=== PATIENT | male | born 1965 | race Caucasian/White ===

== ENCOUNTER → 2022-07-17 | Outpatient (CLI) | payer OTHER, MEDICAID ==
[2022-07-17 17:00] LABS: FOLATE 20.6 NG/ML (>5.4)
== END ==
LOC: M LAB 14:46
PROVIDERS: ATTEND Physician Assistant Medical
DX: R20.2 Paresthesia of skin (principal)

== ENCOUNTER 2024-02-16 12:46 | Observation (INO) | payer MEDICARE, MEDICAID ==
[~2024-02-16] VITALS: Ht 175.3 cm; Wt 128.6 kg
[2024-02-16] MEDS ORDERED: LOSA25TA13 PO (12:58)
[2024-02-16 14:03] LABS: BASO # 0.1 10^3/uL (0.0-0.2); BASO % 0.5 % (0.0-1.0); EOS # 0.1 10^3/uL (0.0-0.5); EOS % 0.4 % (0.0-3.0); HEMATOCRIT 43.1 % (42.0-52.0); HEMOGLOBIN 15.6 g/dl (13.5-17.5); LYMPH # 1.4 10^3/uL (1.5-5.0); LYMPH % 10.4 % (24.0-44.0); MEAN CORPUSCULAR HEMOGLOBIN 32.4 pg (27.0-33.0); MEAN CORPUSCULAR HGB CONC 36.2 g/dl (32.0-36.5); MEAN CORPUSCULAR VOLUME 89.4 fl (80.0-96.0); MONO # 0.6 10^3/uL (0.0-0.8); MONO % 4.9 % (2.0-8.0); NEUTROPHILS % 83.5 % (36.0-66.0); PLATELET COUNT, AUTOMATED 142 10^3/uL (150-450); RED BLOOD COUNT 4.82 10^6/uL (4.30-6.10); WHITE BLOOD COUNT 13.1 10^3/uL (4.0-10.0)
[2024-02-16 14:10] LABS: ERYTHROCYTE SEDIMENTATION RATE 9 mm/hr (0-20)
[2024-02-16 14:31] LABS: ALBUMIN 4.2 G/DL (3.2-5.2); ALKALINE PHOSPHATASE 93 U/L (46-116); ALT/SGPT 32 U/L (7.0-40); AST/SGOT 11 U/L (<34); BILIRUBIN,DIRECT 0.6 MG/DL (<0.4); BILIRUBIN,TOTAL 1.6 MG/DL (0.3-1.2); BLOOD UREA NITROGEN 15 MG/DL (9-23); CALCIUM LEVEL 9.8 MG/DL (8.3-10.6); CARBON DIOXIDE LEVEL 26 MMOL/L (20-31); CHLORIDE LEVEL 105 MMOL/L (98-107); CREATININE FOR GFR 0.87 MG/DL (0.70-1.30); GLOMERULAR FILTRATION RATE > 60.0 (>49); GLUCOSE, FASTING 152 MG/DL (74-106); POTASSIUM SERUM 3.9 MMOL/L (3.5-5.1); SODIUM LEVEL 135 MMOL/L (136-145); TOTAL PROTEIN 7.2 G/DL (5.7-8.2)
[2024-02-16 14:42] LABS: PROCALCITONIN 0.18 ng/ml
[2024-02-16] MEDS ORDERED: VANCOMYCIN HCL 2,000 MG in D5W 500 ML IV ONE (18:15)
[2024-02-16 18:42] LABS: HEMOGLOBIN A1c 5.2 % (4.0-6.0)
[2024-02-16] MEDS: KETOROLAC 30 MG/ML 1ML VIAL IV ONE (19:00)
[2024-02-16] MEDS: VANCOMYCIN HCL 1,000 MG, VIAL MATE ADAPTER 1 EACH in D5W 250 ML IV ONE ×2 (19:00→20:22)
[2024-02-16] MEDS: NS 1,000 ML IV ONE (19:00)
[2024-02-16] MEDS ORDERED: LORazepam 2 MG TAB PO PRN (20:20)
[2024-02-16] MEDS: THIAMINE 100 MG TAB PO SCH (20:56)
[2024-02-16] MEDS: ACETAMINOPHEN TAB 650MG DOSE (2X325MG) PO PRN (20:56)
[2024-02-16] MEDS ORDERED: ACET-897 PO (21:12)
[2024-02-16] MEDS ORDERED: HOME MED LIST COMPLETE! XX SCH (21:15)
[2024-02-17] MEDS: VANCOMYCIN HCL 1,000 MG, VIAL MATE ADAPTER 1 EACH in D5W 250 ML IV SCH (01:58)
[2024-02-17] MEDS: KETOROLAC 30 MG/ML 1ML VIAL IV PRN (02:05)
[2024-02-17] MEDS: ENOXAPARIN 40MG/0.4ML SYRINGE (J1650 PER 10MG) SC SCH (09:20)
[2024-02-17] MEDS: MULTIVITAMINS/MINERALS THERAP 1 TAB PO SCH (09:20)
[2024-02-17] MEDS: FOLIC ACID 1MG TAB PO SCH (09:20)
[2024-02-17 09:50] LABS: BASO # 0.1 10^3/uL (0.0-0.2); BASO % 0.5 % (0.0-1.0); EOS # 0.1 10^3/uL (0.0-0.5); HEMATOCRIT 40.1 % (42.0-52.0); HEMOGLOBIN 14.3 g/dl (13.5-17.5); LYMPH # 0.7 10^3/uL (1.5-5.0); LYMPH % 6.3 % (24.0-44.0); MEAN CORPUSCULAR HGB CONC 35.7 g/dl (32.0-36.5); MEAN CORPUSCULAR VOLUME 89.7 fl (80.0-96.0); MONO # 0.4 10^3/uL (0.0-0.8); MONO % 3.8 % (2.0-8.0); NEUTROPHILS # 10.1 10^3/uL (1.5-8.5); PLATELET COUNT, AUTOMATED 133 10^3/uL (150-450); RED BLOOD COUNT 4.47 10^6/uL (4.30-6.10); WHITE BLOOD COUNT 11.5 10^3/uL (4.0-10.0)
[2024-02-17 10:03] LABS: VANCOMYCIN LEVEL TROUGH 10.1 UG/ML (10.0-20.0)
[2024-02-17 10:15] LABS: PROCALCITONIN 0.24 ng/ml
[2024-02-17 10:31] LABS: ALBUMIN 3.4 G/DL (3.2-5.2); ALKALINE PHOSPHATASE 76 U/L (46-116); ALT/SGPT 24 U/L (7.0-40); AST/SGOT 11 U/L (<34); BILIRUBIN,TOTAL 1.5 MG/DL (0.3-1.2); BLOOD UREA NITROGEN 15 MG/DL (9-23); CALCIUM LEVEL 8.4 MG/DL (8.3-10.6); CARBON DIOXIDE LEVEL 25 MMOL/L (20-31); CHLORIDE LEVEL 106 MMOL/L (98-107); GLOMERULAR FILTRATION RATE > 60.0 (>49); GLUCOSE, FASTING 207 MG/DL (74-106); MAGNESIUM LEVEL 1.8 MG/DL (1.8-2.4); POTASSIUM SERUM 4.3 MMOL/L (3.5-5.1); SODIUM LEVEL 135 MMOL/L (136-145); TOTAL PROTEIN 6.5 G/DL (5.7-8.2)
[2024-02-17] MEDS: ceFAZolin SOD 2 GM in IV 1 EA IV SCH (13:22)
[2024-02-17] MEDS: OXAZEPAM 10MG CAP PO SCH (13:23)
[2024-02-17] MEDS: BOOSTRIX VACCINE (TETANUS/DIPHTH/ACEL. PERTUSSIS) 0.5ML SYR IM ONE (13:24)
[2024-02-17 20:42] VITALS: BP 150/89; TEMP 98.1; O2SAT 99
[2024-02-17 21:16] VITALS: BP 159/62
[2024-02-18] VITALS: BP 132/76; TEMP 98.8; O2SAT 98
[2024-02-18 04:00] VITALS: BP 143/93; TEMP 98.8; O2SAT 98
[2024-02-18] MEDS: NORCO, ANEXSIA 5/325MG TABLET (HYDROcodone/ACETAMINOPHEN) PO ONE (06:06)
[2024-02-18 06:25] LABS: BASO # 0.1 10^3/uL (0.0-0.2); BASO % 0.7 % (0.0-1.0); EOS # 0.3 10^3/uL (0.0-0.5); EOS % 2.9 % (0.0-3.0); HEMATOCRIT 38.9 % (42.0-52.0); HEMOGLOBIN 13.5 g/dl (13.5-17.5); LYMPH # 1.2 10^3/uL (1.5-5.0); LYMPH % 11.8 % (24.0-44.0); MEAN CORPUSCULAR HEMOGLOBIN 31.8 pg (27.0-33.0); MEAN CORPUSCULAR HGB CONC 34.7 g/dl (32.0-36.5); MEAN CORPUSCULAR VOLUME 91.5 fl (80.0-96.0); MONO # 0.6 10^3/uL (0.0-0.8); MONO % 5.7 % (2.0-8.0); NEUTROPHILS # 7.6 10^3/uL (1.5-8.5); NEUTROPHILS % 78.5 % (36.0-66.0); PLATELET COUNT, AUTOMATED 132 10^3/uL (150-450); RED BLOOD COUNT 4.25 10^6/uL (4.30-6.10); WHITE BLOOD COUNT 9.7 10^3/uL (4.0-10.0)
[2024-02-18 06:44] LABS: BLOOD UREA NITROGEN 11 MG/DL (9-23); CALCIUM LEVEL 8.5 MG/DL (8.3-10.6); CARBON DIOXIDE LEVEL 26 MMOL/L (20-31); CHLORIDE LEVEL 107 MMOL/L (98-107); CREATININE FOR GFR 0.86 MG/DL (0.70-1.30); GLOMERULAR FILTRATION RATE > 60.0 (>49); GLUCOSE, FASTING 132 MG/DL (74-106); POTASSIUM SERUM 4.1 MMOL/L (3.5-5.1); SODIUM LEVEL 139 MMOL/L (136-145)
[2024-02-18 08:00] VITALS: BP 141/87; TEMP 97.7; O2SAT 95
[2024-02-18] MEDS ORDERED: CEPHALEXIN 500 MG CAP PO SCH (09:00)
[2024-02-18] MEDS: FLUBLOK(EGGFREE) TRIVAL(24-25) VACCINE PF 0.5ML SYRINGE 18YRS & OLDER IM.IMMUN ONE (09:56)
[2024-02-18] MEDS: CEFDINIR 300 MG CAP (OMNICEF) PO SCH (10:26)
[2024-02-18] MEDS ORDERED: ISOVUE-370 76% 100ML VIAL As Ordered ONE (11:14)
[2024-02-18] MEDS ORDERED: FOLI1TAB11 PO ×2 (11:38→12:50)
[2024-02-18] MEDS ORDERED: CEFD300CAP PO ×2 (11:38→12:50)
[2024-02-18] MEDS ORDERED: THIA100TA PO ×2 (11:38→12:50)
[2024-02-18 11:41] VITALS: BP 161/94
[2024-02-18 11:45] VITALS: BP 161/94; TEMP 98.4; O2SAT 98
[2024-02-18] MEDS ORDERED: LOSA25TA13 PO (12:50)
[2024-02-19] MEDS ORDERED: BACT800T5 PO (07:09)
== END 2024-02-18 13:42 | disposition home or self-care (01) ==
LOC: M ED 12:46 → INTOOBSV 20:14 → M ED INP 20:14 → M MSPAV 02-17 20:44
PROVIDERS: ADMIT Preventive Medicine Undersea and Hyperbaric Medicine; ATTEND Student in an Organized Health Care Education/Training Program
DX: L03.114 Cellulitis of left upper limb (principal); F10.10 Alcohol abuse, uncomplicated; I10 Essential (primary) hypertension; J42 Unspecified chronic bronchitis; F17.210 Nicotine dependence, cigarettes, uncomplicated; R06.83 Snoring; M79.89 Other specified soft tissue disorders; Z91.148 Patient's other noncompliance with medication regimen for other reason; Z23 Encounter for immunization
CPT/HCPCS: 36415; 73080; 73201; 80048; 80053; 80076; 80202; 83036; 83605; 83735; 84145; 85025; 85652; 86140; 87040; 87641; 90471; 90472; 90673; 90715; 93971; 96365; 96366; 96368; 96372; 96375; 96376; 99285; G0378; J0690; J1650; J1885; J3370; Q9967